=== PATIENT | male | born 1970 | race Caucasian/White ===

== ENCOUNTER 2016-11-22 10:16 | Emergency (ER) | payer OTHER ==
[~2016-11-22] VITALS: Ht 177.8 cm; Wt 139.7 kg
[2016-11-22 10:18] VITALS: BP 144/90; PULSE 69; RESP 18; O2SAT 99
--- NOTE | 2016-11-22 10:26 | ED.REPORT ---
HPI-Chest Pain 40 and Over Date of Service Nov 22, 2016 ED Provider: Ramirez Destin Patient is a 46 year old male who presents to the ED after being referred by urgent care for L sided chest discomfort onset 2 days ago. His pain started as shoulder and neck stiffness and moved to his chest. He denies SOB, diaphoresis, nausea, vomiting, palpitations, edema, or any other symptoms. He took 324 mg aspirin this morning for his symptoms. Nursing Notes Stated Complaint: CHEST PAIN Chief Complaint: Chest Pain Nursing Notes Reviewed: Yes ([facility] not reconciled) Allergies: Coded Allergies: No Known Allergies (Unverified , 11/22/16) General Time Seen by MD: 10:24 Chief Complaint Chest pain Hx Obtained From: Patient Arrived By: Walk-in Sudden in Onset?: Yes Onset Occurred: 2 days ago Risk Factors )( CAD Risk Stratification HyperlipidemiaNo Diabetes mellitus, No Hypertension, No Known CAD, No Smoking Risk factors reviewed )( TAD Risk Stratification No Hypertension, No Marfan's syndrome Risk factors reviewed )( PE Risk Stratification Surgery Last 60 DaysNo , No Previous DVT, No Previous PE Risk factors reviewed Past Medical History Past Medical History Hyperlipidemia Denies: Coronary artery disease, Diabetes mellitus, Hypertension Past Surgical History Arthroscopic knee evaluation Family History Grandfather [place] around 60 Smoking History Never Smoker Social History Drug Use: Denies drug use Ambulatory Status Independent Review of Systems Respiratory: Denies: Shortness of breath Cardiovascular: Reports: Chest pain, Denies: Palpitations GI: Denies: Nausea, Vomiting Musculoskeletal: Reports: Joint pain (Shoulder stiffness ), Neck pain ( Stiffness ), Denies: Extremity swelling Skin: Denies Diaphoresis Complete sys rev & neg: except as marked. Physical Exam Initial Vital Signs Vital Signs (First) Date Time Temp Pulse Resp B/P Pulse Ox O2 Delivery O2 Flow Rate FiO2 11/22/16 10:18 36.9 69 18 144/90 99 11/22/16 10:32 Room Air Initial VS: Reviewed, Vital signs normal Head / Eyes: Atraumatic, Normocephalic Skin: Warm, Dry Neurologic: Alert, Oriented, Nonfocal Psychiatric: Mood/affect normal, Behavior normal, Normal thought content General/Constitutional: Awake, Alert, Well developed Respiratory / Chest: Breath sounds NL, Breath sounds = bilat, No respiratory distress Mild reproducible chest wall tenderness Cardiovascular: Heart rate NL, Regular rhythm, Heart sounds NL Abdomen: Soft, Non-tender Back: Inspection NL Interpretation & Diagnostics Lab Results Interpretation Result Diagram: 11/22/16 1000 11/22/16 1000 Test 11/22/16 10:00 White Blood Count 7.9th/mm3 (3.8-10.1) Red Blood Count 4.83mil/mm3 (4.40-5.80) Hemoglobin 14.9g/dL (13.8-17.2) Hematocrit 43.5% (41.0-50.0) Mean Corpuscular Volume 90.1fL (81-100) Mean Corpuscular Hemoglobin 30.8pg (27.0-35.0) Mean Corpuscular Hemoglobin Concent 34.3% (32.0-37.0) Red Cell Distribution Width 13.9% (12.3-15.4) Platelet Count 293bil/L (150-400) Neutrophils (%) (Auto) 58.2% (40-74) Lymphocytes (%) (Auto) 27.0% (14-46) Monocytes (%) (Auto) 10.0% (4-12) Eosinophils (%) (Auto) 3.9% (0-5) Basophils (%) (Auto) 0.6% (0-3) Sodium Level 137mEq/L (134-144) Potassium Level 4.3mEq/L (3.5-5.2) Chloride Level 100mEq/L (97-108) Carbon Dioxide Level 19mmol/L (18-29) Blood Urea Nitrogen 11mg/dL (6-24) Creatinine 0.79mg/dL (0.76-1.27) Estimat Glomerular Filtration Rate 112mL/min (>59) Glucose Level 115mg/dL (60-99) Calcium Level 9.7mg/dL (8.5-10.1) Magnesium Level 2.2mg/dL (1.6-2.6) Total Bilirubin 0.3mg/dL (0.0-1.2) Aspartate Amino Transf (AST/SGOT) 34U/L (0-50) Alanine Aminotransferase (ALT/SGPT) 61U/L (0-44) Alkaline Phosphatase 74U/L (25-150) Troponin T 0.010ug/L (0.0-0.011) Total Protein 7.0g/dL (6.4-8.4) Albumin 4.4g/dL (3.4-5.0) Lab Results Interpretation: CBC normal CMP normal Troponin #1 negative - after days of symptoms ECG Interpretation ECG Interpretation: EKG from urgent care reviewed, normal sinus rhythm rate of 63, no ischemic or dysrhythmic abnormalities Time: 10:30 Interpreted by: ED physician ECG Interpretation: Sinus rate 64 Time: 10:41 Interpreted by: ED physician X-Ray Chest Interpretation Chest Xray Interpretation: IMPRESSION: No acute pulmonary process. Dictated by: Suzanna Mccarty M.D. on 11/22/2016 at 10:48 Approved by: Suzanna Mccarty M.D. on 11/22/2016 at 10:48 View: Portable, 1 view Interpretation / Wet Read by: Interpret - Radiologist Re-Eval/Medical Decision Med Decision/Clinical Course This is a 46-year-old male who has had atypical left chest discomfort continuously for 3 days, decided he should get checked out. He thinks it is musculoskeletal there is no specific injury. He has no major cardiac risk factors except for borderline cholesterol for which she is not reported any medications. There is no exertional component no diaphoresis, no radiation into the arms. Patient clinically appears well as a normal exam. His EKG and lab work and troponin are negative. His heart score is 0 The patient's symptoms are atypical, has had induration that would allow a single troponin, so not funny indication for additional testing at this time- given the low probability is not clear that stress testing is indicated in this low probability situation. However I have explained her symptoms are not resolving, if no worsening symptoms occur, if exertional complaints, shortness of breath or other concerning flags develop, he is seen reevaluated. Patient is discharged in good condition. Source of Hx: Old records Time of Eval: 12:04 Re-Evaluation/Progress Note: Rechecked patient. Discussed plan for discharge. Patient understands and agrees with plan. All questions addressed at this time. Differential Diagnosis: Positive: Chest pain, acute, Negative: Acute coronary syndrome, Acute myocardial infarct, Dysrhythmia, Esophageal rupture, Gun shot wound chest, Hypertroph cardiomyopathy, Pericarditis, Pneumomediastinum, Pneumonia, Pneumothorax, Pulmonary edema, Pulmonary embolism Counseled Regarding: Diagnosis, Lab results, Need for follow-up, When/why to return to ED Discharge & Departure Primary Impression: Chest pain Chest pain type: unspecified Qualified Code: R07.9 - Chest pain, unspecified Disposition: Home Discharge Condition All VS Reviewed: Yes Condition: Improved Additional Instructions: 1. Your tests in the emergency department were normal 2. A dangerous cause of the chest discomfort was not identified. 3. Additional testing at this point is not indicated. 4. Symptoms are expected to improve and resolve with time. 5. Return to the emergency department if new or worsening symptoms occur. 6. If you need a primary care provider, follow up with Dr. Dimas Referrals: NOPCP (PCP) Scribe Attestation Portions of this note were transcribed by Basil Villagomez. I, Dr. Guzmán personally performed the history, physical exam and medical decision-making; I reviewed and confirmed the accuracy of the information in the transcribed note. Signed by: Basil Villagomez 11/22/16, 1328 Destin Guzmán MD Nov 22, 2016 10:25 BASIL VILLAGOMEZ Nov 22, 2016 10:40
[2016-11-22 10:32] VITALS: BP 147/81; PULSE 75; RESP 12; O2SAT 97
[2016-11-22 10:44] LABS: BASOPHILS % (AUTO) 0.6 % (0-3); EOSINOPHILS % (AUTO) 3.9 % (0-5); Mean Corpuscular Hemoglobin 30.8 pg (27.0-35.0); Mean Corpuscular Volume 90.1 fL (81-100); NEUTROPHILS % (AUTO) 58.2 % (40-74); Platelet Count 293 bil/L (150-400)
--- NOTE | 2016-11-22 10:49 | DRSVH ---
PROCEDURE: X-RAY CHEST ONE VIEW, PORTABLE ([id number]) INDICATIONS: CP TECHNIQUE: One view of the chest was acquired. COMPARISON: None. FINDINGS: Surgical changes and devices: None. Lungs and pleura: No pleural effusions or pneumothorax. Lungs are clear. Mediastinum: Mediastinal contours appear normal. Heart size is normal. Bones and chest wall: No suspicious bony lesions. Overlying soft tissues appear unremarkable. IMPRESSION: No acute pulmonary process. Dictated by: Suzanna Mccarty M.D. on 11/22/2016 at 10:48 Approved by: Suzanna Mccarty M.D. on 11/22/2016 at 10:48
[2016-11-22 11:43] LABS: TROPONIN T 0.01 ug/L (0.0-0.011)
[2016-11-22 11:54] LABS: Magnesium 2.2 mg/dL (1.6-2.6)
[2016-11-22 12:26] VITALS: BP 138/65; PULSE 66; RESP 24; O2SAT 97
== END 2016-11-22 12:27 ==
LOC: SED 10:16
DX: R07.89 Other chest pain (principal); E78.5 Hyperlipidemia, unspecified